=== PATIENT | female | born 1990 | race Caucasian/White ===

== ENCOUNTER 2021-06-07 18:14 | Emergency (ER) | payer MEDICAID, OTHER ==
[~2021-06-07] VITALS: Ht 167.6 cm; Wt 68.0 kg
[2021-06-07 18:15] VITALS: BP 130/84
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
[2021-06-07] MEDS ORDERED: DOXYCYCLINE 100 MG CAP PO STA (18:32)
[2021-06-07] MEDS ORDERED: cefTRIAXone 500 MG in LIDOCAINE MPF 1% 1 ML IM ONE (18:35)
[2021-06-07] MEDS ORDERED: DOXY-690 PO (18:36)
[2021-06-07] MEDS ORDERED: cefTRIAXone 500 MG VIAL ONE (18:36)
[2021-06-07] MEDS ORDERED: LIDOCAINE MPF 1% 5 ML ONE (18:36)
[2021-06-07] MEDS ORDERED: METR500T1 PO (18:36)
--- NOTE | 2021-06-07 18:41 | NUR ---
PATIENT BIB [facility] [employer]. PATIENT EXAMINED BY DR. DAVIES. PATIENT MEDICALLY CLEARED AND RELEASED IN CUSTODY IN STABLE CONDITION. ORIGINAL PRE-BOOK FORM GIVEN TO OFFICER WILL.
== END 2021-06-07 18:41 ==
LOC: MED 18:14
DX: Z20.2 Contact with and (suspected) exposure to infections with a predominantly sexual mode of transmission (principal); Z02.89 Encounter for other administrative examinations; Z79.899 Other long term (current) drug therapy
CPT/HCPCS: 36415; 81002; 81025; 96372; 99283; J0696; J2001; 87491